=== PATIENT | male | born 1960 | race Caucasian/White ===

== ENCOUNTER 2023-02-07 15:23 | Inpatient (IN) | payer SELFPAY ==
[2023-02-07] VITALS (8 sets, daily range): BP systolic 80–103; BP diastolic 64–86
[~2023-02-07] VITALS: Ht 177.8 cm; Wt 72.3 kg
[2023-02-07 15:57] LABS: BASOPHILS ABSOLUTE AUTO 0.06 K/mm3 (0.00-0.23); BASOPHILS PERCENT AUTO 1 % (0-2); EOSINOPHILS PERCENT AUTO 1 % (0-6); Hemoglobin 14.3 g/dL (13.5-17.5); IMMATURE GRAN ABSOLUTE AUTO 0.01 K/mm3 (0.00-0.10); IMMATURE GRAN PERCENT AUTO 0 % (0-1); LYMPHOCYTES PERCENT AUTO 24 % (21-46); MONOCYTES ABSOLUTE AUTO 0.94 K/mm3 (0.16-1.47); MONOCYTES PERCENT AUTO 11 % (4-13); Mean Corpuscular HGB 32.7 pg (26.0-34.0); Mean Corpuscular HGB Conc 34.9 g/dL (31.5-36.5); Mean Corpuscular Volume 94 fL (80-100); Mean Platelet Volume 10.5 fL (9.1-12.4); NEUTROPHILS ABSOLUTE AUTO 5.38 K/mm3 (1.96-9.15); NEUTROPHILS PERCENT AUTO 63 % (41-73); Platelet Count 220 K/mm3 (150-400); RDW Coefficient Variation 12.9 % (11.7-14.2); RDW Standard Deviation 44.9 fL (35.1-46.3); Red Blood Cell Count 4.37 M/mm3 (4.30-5.90); White Blood Cell Count 8.49 K/mm3 (4.00-11.30)
[2023-02-07 16:17] LABS: Albumin, Blood 3.7 g/dL (3.4-5.0); Albumin/Globulin Ratio 1.1 (0.8-1.8); Bilirubin, Total 0.3 mg/dL (0.1-1.0); Bun/Creatinine Ratio 9.8 (12.0-20.0); Calcium, Blood 8.5 mg/dL (8.5-10.1); Creatinine, Blood 0.92 mg/dL (0.60-1.20); Globulin, Blood 3.4 g/dL (2.2-4.0); Potassium, Blood 3.7 mmol/L (3.5-5.5); Total Protein, Blood 7.1 g/dL (6.4-8.2)
--- NOTE | 2023-02-07 20:00 | NUR ---
ARRIVAL TO [facility] PT ARRIVED TO [facility] AT APPROXIMATELY 1920. PT TRANSFERED FROM ER [facility] TO HOSPITAL BED IND. PT AMBULATED TO BATHROOM IND WHILE THIS RN IN ROOM. PT A&Ox4, COMMUNICATES NEEDS APPROPRIATELY, ORIENTED PT TO CALL LIGHT/UNIT. BP SOFT, WITH SBP 90's. AFIB 120-140's, CARIZEM gtt @ 10. PT DENIES CP/PRESSURE. SpO2> 92% RA, DENIES SOB. PT DENIES PAIN. PT CONTINENT OF URINE AND BOWEL. BED IN LOWEST POSITION, CALL LIGHT IN REACH.
[2023-02-08] VITALS (20 sets, daily range): BP systolic 80–113; BP diastolic 56–91
[2023-02-08 03:45] LABS: Hematocrit 39.7 % (37.0-53.0); Hemoglobin 13.8 g/dL (13.5-17.5); Mean Corpuscular HGB 32.2 pg (26.0-34.0); Mean Corpuscular HGB Conc 34.8 g/dL (31.5-36.5); Mean Corpuscular Volume 93 fL (80-100); Mean Platelet Volume 11.1 fL (9.1-12.4); Platelet Count 227 K/mm3 (150-400); RDW Coefficient Variation 13.2 % (11.7-14.2); RDW Standard Deviation 44.4 fL (35.1-46.3); Red Blood Cell Count 4.28 M/mm3 (4.30-5.90); White Blood Cell Count 7.22 K/mm3 (4.00-11.30)
[2023-02-08 04:11] LABS: Bun/Creatinine Ratio 11.8 (12.0-20.0); Calcium, Blood 8.7 mg/dL (8.5-10.1); Creatinine, Blood 1.02 mg/dL (0.60-1.20); Magnesium, Blood 2.1 mg/dL (1.6-2.4); Potassium, Blood 3.7 mmol/L (3.5-5.5)
--- NOTE | 2023-02-08 06:36 | NUR ---
SHIFT SUMMARY A&Ox4, CALLS AND COMMUNICATES NEEDS APPROPRIATELY. BP SOFT, WITH SBP 90's. AFIB 90-140's, SEE EMAR FOR TITRATION. CARIZEM gtt @ 10mg/hr AT THIS TIME. PT DENIES CP/PRESSURE. SpO2> 92% RA, DENIES SOB. PT DENIES PAIN. PT CONTINENT OF URINE AND BOWEL. USES URINAL AT BEDSIDE IND. PT WANTING TO GO HOME TODAY. NO OTHER EVENTS, WILL REPORT TO ONCOMING RN.
[2023-02-08 08:17] LABS: U Amphetamine Screen Not Detected; U Barbituate Screen Not Detected; U Benzodiazapine Screen Not Detected; U Buprenorphine Screen Not Detected; U Cannabinoids Screen Not Detected; U Cocaine Screen Not Detected; U Methadone Screen Not Detected; U Methamphetamine Screen Not Detected; U Opiates Screen Not Detected; U Oxycodone Screen Not Detected; U Phencyclidine Screen Not Detected; U Propoxyphene Screen Not Detected
--- NOTE | 2023-02-08 14:43 | NUR ---
Echocardiogram completed.
--- NOTE | 2023-02-08 17:12 | NUR ---
SHIFT SUMMARY: PT A&Ox4, COOPERATIVE W/CARE, ABLE TO MAKE NEEDS KNOWN. O2 SATS >93% ON RA, PT REPORTS MILD SOB ONGOING SINCE PROJECT MANAGEMENT, DENIES WORSENING T/OUT DAY. AFIB CONTINUES ON MONITOR, RATE SUSTAINING 110s-120s W/OCCASIONAL SPIKES INTO 130s, PT DENIES CP BUT DOES REPORT A FEELING OF "TIGHTNESS" IN CHEST SINCE PROJECT MANAGEMENT, DENIES WORSENING T/OUT DAY. BP HAS IMPROVED T/OUT DAY, MAP CONTINUES >65. DILTIAZEM GTT DC'd TODAY, PT MEDICATED PER NEW ORDERS IN EMAR. ECHO COMPLETED AT BEDSIDE THIS AFTERNOON. PT CONTINENT, USING URINAL W/OUT DIFFICULTY. PT REPOSITIONING SELF W/OUT DIFFICULTY. AT THIS TIME, PT IS RESTING QUIETLY IN BED W/CALL LIGHT W/IN REACH. WILL CONTINUE TO MONITOR AND TREAT ACCORDINGLY UNTIL CHANGE OF SHIFT.
[2023-02-09] VITALS (9 sets, daily range): BP systolic 88–107; BP diastolic 71–82
--- NOTE | 2023-02-09 06:27 | NUR ---
SHIFT SUMMARY A&Ox4, CALLS AND COMMUNICATES NEEDS APPROPRIATELY. BP SOFT, WITH SBP 90's, ASYMPTOMATIC. AT START OF SHIFT, AFIB 110-130's, HR SLOWLY TRENDING UP THROUGHOUT SHIFT, HR IS NOW AFIB 120-150's. PT RECEIVED SECOND DOSE OF IV DIGOXIN THIS SHIFT. DISCUSSED HR TREND AND SOFT BP's WITH VASCULAR MANAGER. PT DENIES CP/PRESSURE. SpO2> 92% RA, REPORTS MILD SOB. PT DENIES PAIN. PT CONTINENT OF URINE AND BOWEL. USES URINAL AT BEDSIDE IND OR AMBULATES IND INTO BATHROOM. NO OTHER EVENTS, WILL REPORT TO ONCOMING RN.
--- NOTE | 2023-02-09 10:26 | NUR ---
CP / CALL TO PT LAYING IN BED, REPORTING 4/10 CHEST "PRESSURE" RADIATING INTO L ARM & STATES TOP OF LIPS BEING SWEATY. PT VSS. THIS RN GONE TO GET EKG MACHINE, UPON RETURN TO , PT REPORTING CP GONE. PT STATING "THAT'S WHAT IT DOES, IT GOES ALMOST QUICKLY IT COMES. CALL TO MD LA W/ STATING TO CONTINUE W/ EKG & ORDER TROPONIN.
--- NOTE | 2023-02-09 15:00 | NUR ---
CP / HR 30s AT APPROX 1430, THIS RN NOTIFIED BY TELEMETRY PT HR DECREASE TO 30s. THIS RN TO PT RM W/ PT REPORTING "I'M HAVING CHEST PRESSURE AGAIN. I FEEL FATIGUED. MY ARMS FEEL WEAKER." MONITOR SHOWING AFIB, HR 30s-40s. EKG MACHINE BROUGHT TO RM, APPLIED TO PT W/ PT HR THEN INCREASE TO 90s-120s. PT THEN REPORTING CP FREE & HR THEN BACK TO AFIB 100-140s. MD CASAREZ NOTIFIED. MD CASAREZ W/ INSTRUCTION TO HOLD OFF ON FURTHER DIGOXIN.
--- NOTE | 2023-02-09 18:57 | NUR ---
END OF SHIFT NOTE PT CONTINUES TO BE A&O X4. VSS. SPO2 > 92% ON RA. MONITOR SHOWING AFIB, HR 100-140s. PT W/ CP X2 THIS SHIFT & HR DECREASE TO 30s X1, SEE PREVIOUS NOTES. PT W/ NO FURTHER REPORT OF CP. EKGs & RHYTHM STRIPS IN CHART. MD CASAREZ & MD ZARAGOZA AWARE.
[2023-02-10 03:55] VITALS: BP 94/79
[2023-02-10 04:30] LABS: Bun/Creatinine Ratio 13.6 (12.0-20.0); Calcium, Blood 8.8 mg/dL (8.5-10.1); Creatinine, Blood 1.03 mg/dL (0.60-1.20); Magnesium, Blood 2.2 mg/dL (1.6-2.4); Potassium, Blood 4.2 mmol/L (3.5-5.5)
--- NOTE | 2023-02-10 05:03 | NUR ---
SHIFT SUMMARY A&Ox4, CALLS AND COMMUNICATES NEEDS APPROPRIATELY. BP SOFT, WITH SBP 90's, ASYMPTOMATIC. AFIB 120-150's, DENIES CP/PRESSURE. PT WITH 3 BRIEF EPISODES OF BRADYCARDIA, STILL AFIB, LOWEST HR BEING 41bpm. THIS RN AT BEDSIDE SURING EACH EPISODE TRYING TO CATCH IT ON EKG, EPISODES WERE TOO SHORT TO SUCCESSFULLY OBTAIN. DURING THESE EPISODE PT BECOMES VERY DIAPHORETIC, HAS CP, AND SOB. ALL SYMPTOMS SUBSIDE WHEN HR RETURNS TO >110bpm. BE STABLE DURING EVENTS. MD AWARE. SpO2> 92% RA, REPORTS MILD SOB. PT DENIES PAIN. PT CONTINENT OF URINE AND BOWEL. USES URINAL AT BEDSIDE IND OR AMBULATES IND INTO BATHROOM. NO OTHER EVENTS, WILL REPORT TO ONCOMING RN.
[2023-02-10 08:30] VITALS: BP 112/90
--- NOTE | 2023-02-10 12:19 | NUR ---
ROGELIO & CARDIOVERSION COMPLETE ROGELIO & CARDIOVERSION DONE IN PT [facility] W/ MD CASAREZ, MED ADMIN, RT & 2 RNs. POST PROCEDURE, PT A&O X4. VSS. SPO2 > 92% ON 2L NC. MONITOR NOW SHOWING NSR, HR 70s-80s. BP STABLE.
[2023-02-10 16:15] VITALS: BP 100/78
--- NOTE | 2023-02-10 18:00 | NUR ---
END OF SHIFT NOTE PT A&O X4. VSS. SPO2 > 92% ON RA. MONITOR ORIGINALLY SHOWING AFIB, HR 100-150s. ROGELIO & CARDIOVERSION DONE BY MD CASAREZ IN PT RM, SEE PREVIOUS NOTE. PT HR SUSTAINING NSR, HR 70s-80s. PT REPORTING FEELING "MUCH BETTER". PT INDEPENDENT IN RM, ABLE TO MAKE NEEDS KNOWN. PT W/ NO REQUESTS/COMPLAINTS.
[2023-02-10 20:53] VITALS: BP 107/75
[2023-02-11] VITALS (14 sets, daily range): BP systolic 78–109; BP diastolic 56–98
--- NOTE | 2023-02-11 05:16 | NUR ---
SHIFT SUMMARY ASSUMED CARE OF PT AT 1900. PT IS A/OX4. HEART SOUNDS REGULAR. LUNG SOUNDS CLEAR. PT HAD NOT ACUTE EVENTS UNTIL 319. PT HAD ST ELEVATION AND STATES FEELING SOB AND SWEATY. THIS NURSE WAS GETTING EKG, PT CONVERTED TO AFIB RVR WITH RATE 120-145. DR CASAREZ CALLED AND SAID TO STAT AMIO GTT. PT UPSET ABOUT THIS; THINKING THAT IT IS A SET BACK IN HIS CARE. PT EDUCATED ABOUT CLINICAL ILLNESS AND MEDICATION REGIME.
--- NOTE | 2023-02-11 10:45 | NUR ---
UPDATE PT A&O X4. VSS. SPO2 > 92% ON RA. MONITOR SHOWING AFIB, HR 90s-130s W/ AMIO GTT INFUSING PER ORDERS. MD CASAREZ TO BEDSIDE W/ ORDER TO STOP AMIO GTT THIS AFTERNOON & GIVE PO AMIO THIS AM & AGAIN THIS AFTERNOON, SEE ORDER. AT APPROX 1020, STAFF NOTIFIED BY [employer] MECHANIC THAT PT HR DECREASE TO 80s & SHOWING ST CHANGES. STAFF IMMEDIATELY TO PT RM W/ PT REPORTING CP. EKG DONE, CAPTURING CHANGES. PT VSS. SYMPTOMS ONLY LASTING BRIEFLY, THEN PT HR INCREASE BACK TO 110s w/ NO ST ELEVATION ON MONITOR & PT REPORTING NO FURTHER CP. MD CASAREZ NOTIFIED.
[2023-02-11] MEDS ORDERED: FURO20 PO (13:21)
[2023-02-11] MEDS ORDERED: AMIODARONE HCL400 M2 PO (13:21)
[2023-02-11] MEDS ORDERED: ELIQUIS5 M2 PO (13:21)
[2023-02-11] MEDS ORDERED: METO50ER PO (13:22)
[2023-02-11] MEDS ORDERED: NICO21TP TOP (13:22)
[2023-02-11] MEDS ORDERED: B-1100 M1 PO (13:22)
[2023-02-11] MEDS ORDERED: Amiodarone HCl200 MG PO (13:23)
[2023-02-11 18:48] LABS: International Normalized Ratio 1.12; Prothrombin Time Results 11.7 Sec (9.7-11.5)
--- NOTE | 2023-02-11 19:32 | NUR ---
UPDATE / END OF SHIFT NOTE SEE PREVIOUS NOTE* EKG & PT SYMPTOMS OF CP REPORTED TO MD CASAREZ THIS AM W/ PLAN FOR CONTINUATION OF PT DISCHARGE. PT W/ NO FURTHER CP. CALL TO MD CASAREZ @ APPROX 1600 TO CONFIRM OKAY FOR PT DISCHARGE AFTER 1600 PO AMIODARONE DOSE DESPITE EKG FINDINGS/CP THIS AM. DC NOT CANCELLED. PT STATING, "YEAH I FEEL READY. I FEEL GREAT." PO AMIO GIVEN PER ORDER & PT DISCHARGED. MD ZARAGOZA TO UNIT SHORTYL AFTER PT DISCHARGE W/ MD ZARAGOZA & MD CASAREZ REVIEW OF EKG, STATING NEED FOR PT RETURN TO UNIT. PT BACK TO PCU-15. REPEAT EKG DONE & PLACED IN CHART. MD's W/ PLAN FOR PT STAY OVER NIGHT & PLAN FOR PT BE NPO AFTER MIDNIGHT FOR ANGIOGRAM IN AM. HEPARIN GTT INITIATED PER MD ORDER. PT THEN W/ ANOTHER EPISODE OF CP, NO ST CHANGES NOTED ON TELEMETRY, BUT RATE/RHYTHM DECREASE FROM AFIB 110s TO 60s-70s. EKG ATTEMPTED DURING EVENT, BUT PT CP SUBSIDED WITHIN 2 MINUTES & HR RETURNED TO 110s-120s SHOWN PREVIOUSLY.
--- NOTE | 2023-02-11 20:30 | NUR ---
Patient got up to use restroom and began having ST changes and HR in 40's (previously in 100's), diaphoretic, CP radiating into arm, VSS. Lasted about 3 minutes before returning to previous rhythm. Advised patient to use urinal and not exert himself.
[2023-02-12] VITALS (27 sets, daily range): BP systolic 73–123; BP diastolic 58–95
[2023-02-12 01:43] LABS: Bun/Creatinine Ratio 14.6 (12.0-20.0); Calcium, Blood 8.8 mg/dL (8.5-10.1); Creatinine, Blood 1.03 mg/dL (0.60-1.20); Magnesium, Blood 2.3 mg/dL (1.6-2.4)
--- NOTE | 2023-02-12 04:54 | NUR ---
Resident contacted regarding concern for patients dropping BP as well as narrow pulse pressure. Order for 250ml bolus.
--- NOTE | 2023-02-12 06:00 | NUR ---
Assumed care of pt at 1900. A/Ox4, cooperative with care. Afib on tele 90-120. Whenever patient exerts himself, noticeable pattern of HR decreasing (as low as [address] elevation. Patient reports CP that radiates down arm along with diaphoresis and SOB. After patient rests again, it is not long before he returns to baseline rhythm of Afib. Patient needs reminders to not exert himself and to call appropriately. Patient is using BSC to reduce activity. 2L NC with CP episodes with some relief. BP has decreased this shift with SBP in 70's and MAP 60's, call made to resident and 250ml NS bolus ordered. Upon recheck SBP 90's and MAP in 80's. Patient made NPO at midnight. Will report to dayshift RN.
[2023-02-12 08:31] LABS: Hematocrit 44.1 % (37.0-53.0); Hemoglobin 15.7 g/dL (13.5-17.5); Mean Platelet Volume 9.9 fL (9.1-12.4); Platelet Count 246 K/mm3 (150-400)
--- NOTE | 2023-02-12 09:21 | NUR ---
Pt taken to [facility]. Will await return to room.
[2023-02-12] MEDS ORDERED: ASPI81CH PO (13:31)
[2023-02-12] MEDS ORDERED: ATOR40TA PO (13:32)
--- NOTE | 2023-02-12 15:30 | NUR ---
TR BAND FULLY RECOVERED. NO ACTIVE BLEEDING NOTED TO SITE. NO HEMATOMA NOTED. TR BAND REMOVED. TEGADERM DRESSING PLACED. PT WITH GOOD ROM OF FINGERS TO RT HAND, NO NUMBNESS OF TINGLING. GOOD CAP REFILL TO RIGHT HAND. ARM BOARD WAS REPLACED TO RT ARM. PT DENIES CP. VSS. AFIB NOTED ON MONITOR.
--- NOTE | 2023-02-12 15:45 | NUR ---
PT D/C WITH WORK NOTE. PT EXPRESSED UNDERSTANDING OF DC TEACHING AND NEW MEDICATIONS, FAMILY THOROUGHLY EDUCATED WELL. IVs REMOVED AND PRESSURE DRESSED.
== END 2023-02-12 16:00 | disposition home or self-care (01) | DRG 286 ==
LOC: ER 15:23 → PCU 15:24
PROVIDERS: Emergency Medicine; Family Medicine; Hospitalist; Nurse Practitioner Acute Care; Pharmacist; Physician Assistant; Student in an Organized Health Care Education/Training Program; ADMIT Internal Medicine
PROC: 5A2204Z Restoration of Cardiac Rhythm, Single (ICD-10-PCS; 2023-02-10)
PROC: B24BZZ4 Ultrasonography of Heart with Aorta, Transesophageal (ICD-10-PCS; 2023-02-10)
PROC: 4A023N7 Measurement of Cardiac Sampling and Pressure, Left Heart, Percutaneous Approach (ICD-10-PCS; principal; 2023-02-12)
PROC: B211YZZ Fluoroscopy of Multiple Coronary Arteries using Other Contrast (ICD-10-PCS; 2023-02-12)
PROC: B240ZZ3 Ultrasonography of Single Coronary Artery, Intravascular (ICD-10-PCS; 2023-02-12)
DX: I48.0 Paroxysmal atrial fibrillation (principal); I50.21 Acute systolic (congestive) heart failure; F10.239 Alcohol dependence with withdrawal, unspecified; E87.1 Hypo-osmolality and hyponatremia; I48.92 Unspecified atrial flutter; I25.10 Atherosclerotic heart disease of native coronary artery without angina pectoris; I95.9 Hypotension, unspecified; I34.0 Nonrheumatic mitral (valve) insufficiency; I42.8 Other cardiomyopathies; E05.90 Thyrotoxicosis, unspecified without thyrotoxic crisis or storm; F17.210 Nicotine dependence, cigarettes, uncomplicated; I83.90 Asymptomatic varicose veins of unspecified lower extremity; Z71.6 Tobacco abuse counseling; Z71.41 Alcohol abuse counseling and surveillance of alcoholic
CPT/HCPCS: 36415; 71045; 76937; 80048; 80053; 83735; 83880; 84443; 84484; 85014; 85018; 85025; 85027; 85049; 85610; 85730; 93005; 93010; 93306; 93312; 93325; 93458; 96365; 96366; 96372; 96375; 96376; 99152; 99153; 99285-25; A9270; C1769; C1887; C1894; G0378; J0282; J1160; J1644; J1650; J1940; J2250; J3010; J7030; J7040; J7050; J7060; Q9967

== ENCOUNTER → 2024-01-25 | Outpatient (CLI) | payer OTHER ==
[~2024-01-25] MED LIST: AMIODARONE HCL400 M2 PO; ASPI81CH PO; ATOR40TA PO; Amiodarone HCl200 MG PO; B-1100 M1 PO; ELIQUIS5 M2 PO; FURO20 PO; METO50ER PO; NICO21TP TOP
[2024-01-25 19:08] LABS: BASOPHILS ABSOLUTE AUTO 0.08 K/mm3 (0.00-0.23); BASOPHILS PERCENT AUTO 1 % (0-2); EOSINOPHILS ABSOLUTE AUTO 0.39 K/mm3 (0.00-0.68); EOSINOPHILS PERCENT AUTO 4 % (0-6); Hematocrit 44.4 % (37.0-53.0); Hemoglobin 15.8 g/dL (13.5-17.5); IMMATURE GRAN ABSOLUTE AUTO 0.02 K/mm3 (0.00-0.10); IMMATURE GRAN PERCENT AUTO 0 % (0-1); LYMPHOCYTES ABSOLUTE AUTO 3.37 K/mm3 (0.84-5.20); LYMPHOCYTES PERCENT AUTO 35 % (21-46); MONOCYTES PERCENT AUTO 8 % (4-13); Mean Corpuscular HGB 31.9 pg (26.0-34.0); Mean Corpuscular HGB Conc 35.6 g/dL (31.5-36.5); Mean Corpuscular Volume 90 fL (80-100); Mean Platelet Volume 9.4 fL (9.1-12.4); NEUTROPHILS PERCENT AUTO 52 % (41-73); Platelet Count 306 K/mm3 (150-400); RDW Coefficient Variation 12.9 % (11.7-14.2); RDW Standard Deviation 42.5 fL (35.1-46.3); Red Blood Cell Count 4.95 M/mm3 (4.30-5.90); White Blood Cell Count 9.76 K/mm3 (4.00-11.30)
[2024-01-25 20:13] LABS: Alanine Aminotransfer (ALT/SGP 66 U/L (12-78); Albumin, Blood 4.1 g/dL (3.4-5.0); Albumin/Globulin Ratio 1.2 (0.8-1.8); Alk Phos 53 U/L (50-136); Anion Gap 8 mmol/L (3-11); Aspartate Aminotrans (AST/SGOT 54 U/L (12-37); Bilirubin, Total 0.6 mg/dL (0.1-1.0); Blood Urea Nitrogen 6 mg/dL (8-24); Bun/Creatinine Ratio 7.1 (12.0-20.0); CHOL/HDL RATIO 1.7; CO2, Blood 25 mmol/L (21-32); Calcium, Blood 8.9 mg/dL (8.5-10.1); Chloride, Blood 100 mmol/L (98-108); Cholesterol 136 mg/dL (50-200); Creatinine, Blood 0.84 mg/dL (0.60-1.20); Globulin, Blood 3.5 g/dL (2.2-4.0); Glomerular Filtration Rate 97 (60-); Glucose, Blood 75 mg/dL (70-99); HDL Cholesterol 78 mg/dL (>39); LDL/HDL RATIO 0.6; Low Density Lipoprotein Chol 49 mg/dL (0-110); Potassium, Blood 3.8 mmol/L (3.5-5.5); Sodium, Blood 129 mmol/L (136-145); Total Protein, Blood 7.6 g/dL (6.4-8.2); Triglycerides 44 mg/dL (30-160); Very Low Density Lipoprot Chol 8 mg/dL (6-32)
== END | disposition home or self-care (01) ==
LOC: LAB 17:40 → LAB SHORT 17:40
PROVIDERS: Student in an Organized Health Care Education/Training Program
DX: R41.3 Other amnesia (principal); Z79.899 Other long term (current) drug therapy
CPT/HCPCS: 80053; 80061; 84443; 85025